=== PATIENT | male | born 1935 | race Caucasian/White ===

== ENCOUNTER → 2016-04-18 | Outpatient (CLI) | payer OTHER ==
[2016-04-18 16:05] LABS: BASOPHILS % (AUTO) 0.9 % (0-1); EOSINOPHILS % (AUTO) 1.9 % (0-8); HEMATOCRIT 44.4 % (42.0-52.0); HEMOGLOBIN 15.4 g/dL (14.0-18.0); IMM GRAN % (AUTO) 0.1 % (0-5); IMM GRAN# (AUTO) 0.01 10*3/UL; LYMPHOCYTES # (AUTO) 2.92 10*3/uL; LYMPHOCYTES % (AUTO) 24.9 % (10-50); MEAN CORPUSCULAR HGB CONC 34.7 g/dL (33-37); MEAN PLATELET VOLUME 10.3 FL (7.4-12.2); MONOCYTES # (AUTO) 1.41 10*3/UL (0.3-0.8); NEUTROPHILS # (AUTO) 7.09 10*3/UL; NEUTROPHILS % (AUTO) 60.2 % (50-80); RDW COEFFICIENT OF VARIATION 13.9 % (11.5-14.5); RED BLOOD COUNT 4.66 10^6/uL (4.70-6.10); WHITE BLOOD COUNT 11.75 10^3/uL (4.8-10.8)
[2016-04-18 16:11] LABS: PLATELET MORPHOLOGY COMMENT NORMAL MORPHOLOGY (NORM)
[2016-04-18 16:23] LABS: BILIRUBIN,TOTAL 0.6 mg/dL (0.3-1.2); CALCIUM 9.7 mg/dL (8.7-10.7); CREATININE 1.1 mg/dL (0.70-1.50); POTASSIUM 3.5 meq/L (3.8-5.2); TOTAL PROTEIN 7.4 g/dL (6.1-8.0)
== END ==
LOC: LAB 15:50
PROVIDERS: ATTEND Internal Medicine
DX: C43.61 Malignant melanoma of right upper limb, including shoulder (principal)
CPT/HCPCS: 36415; 80053; 83615; 85025

== ENCOUNTER → 2016-05-24 | Outpatient (CLI) | payer OTHER | LOC: MMPC 11:11 | PROVIDERS: ATTEND Internal Medicine | DX: I10 Essential (primary) hypertension (principal); F17.219 Nicotine dependence, cigarettes, with unspecified nicotine-induced disorders; L57.0 Actinic keratosis; M72.0 Palmar fascial fibromatosis [Dupuytren] | CPT/HCPCS: 99214; G0463 ==

== ENCOUNTER → 2016-08-30 | Outpatient (CLI) | payer OTHER ==
[2016-08-30 14:16] LABS: BUN/CREATININE RATIO 9.09 (6-20); CALCIUM 9.3 mg/dL (8.7-10.7)
== END ==
LOC: LAB 13:55
PROVIDERS: ATTEND Internal Medicine
DX: I10 Essential (primary) hypertension (principal); F17.200 Nicotine dependence, unspecified, uncomplicated
CPT/HCPCS: 36415; 80048

== ENCOUNTER → 2016-08-31 | Outpatient (CLI) | payer OTHER | LOC: MMPC 11:11 | PROVIDERS: ATTEND Internal Medicine | DX: I10 Essential (primary) hypertension (principal); Z87.891 Personal history of nicotine dependence | CPT/HCPCS: 99213; G0463 ==